=== PATIENT | female | born 1965 | race Caucasian/White ===

== ENCOUNTER 2019-04-22 19:41 | Emergency (ER) | payer OTHER ==
[2019-04-22 19:54] VITALS: BMI 32.3
--- NOTE | 2019-04-22 19:54 | PDOC ---
Rapid Medical Evaluation Time Seen by Provider: 04/22/19 19:50 Medical Evaluation: Allergies Allergy/AdvReac Type Severity Reaction Status Date / Time acetaminophen [From Tylenol] Allergy Severe Hives Verified 10/01/14 22:46 codeine [Codeine] Allergy Severe Rash Verified 10/01/14 22:46 morphine Allergy Intermediate Hives Verified 10/01/14 22:46 04/22/19 19:50 Presents to the ER for abdominal pain s/p talha hart on 03/26 in [place]. Had drains in place and they were removed by her PCP here. Still with lower abdominal pain and distension Exam: ambulatory, NAD, lower abdominal discomfort on exam. Mild distention Orders: Labs, urine, IV insert Pt to proceed to the ER for further evaluation Discharge Disposition - Diagnosis Post-op pain - Referrals - Patient Instructions - Post Discharge Activity
[2019-04-22 20:35] LABS: BASO % 0.7 % (0-2.0); HEMATOCRIT 36.6 % (32.4-45.2); HEMOGLOBIN 11.9 GM/dL (10.7-15.3); MCH 26.9 pg (25.7-33.7); MCHC 32.6 g/dl (32.0-36.0); MEAN CELL VOLUME 82.5 fl (80-96); MEAN PLT VOLUME 7.4 fl (7.5-11.1); MONO % 7.6 % (3.8-10.2); NEUT % 60.7 % (42.8-82.8); PLATELET COUNT 454 K/MM3 (134-434); RBC 4.44 M/mm3 (3.60-5.2); RDW 14.8 % (11.6-15.6)
--- NOTE | 2019-04-22 20:48 | PDOC ---
History of Present Illness - History of Present Illness Initial Comments: 54 year old female with PMH of HTN and cosmetic abdominal surgery with lap band removal s/p 27 days prior presenting with recent onset of abdominal firmness, chills, and clear drainage from her navel. She notes clear drainage out of her umbilicus as well without any yellow or white material. Denies fevers, nausea, vomiting, diarrhea, or other symptoms. 04/22/19 20:45 <Dread Ingram - Last Filed: 04/23/19 03:41> <Guillermo Denise - Last Filed: 04/23/19 06:15> - General Chief Complaint: Revisit,Wound Recheck Stated Complaint: SURGICAL PAIN Time Seen by Provider: 04/22/19 19:50 Past History - Past Medical History Anemia: No Asthma: No Cancer: No Cardiac Disorders: No CVA: No COPD: No CHF: No Dementia: No Diabetes: No GI Disorders: Yes (GERD COLONIC POLYPS) Disorders: No HTN: Yes Hypercholesterolemia: No Liver Disease: No Seizures: No Thyroid Disease: No - Surgical History Abdominal Surgery: Yes (LAPARASCOPIC BANDING COLON RESECTION FOR LARGE BENIGN POLYP) Appendectomy: Yes Cardiac Surgery: No Cholecystectomy: Yes Lung Surgery: No Neurologic Surgery: No Orthopedic Surgery: No - Immunization History Immunization Up to Date: Yes - Suicide/Smoking/Psychosocial Hx Smoking History: Former smoker Have you smoked in the past 12 months: No Number of Cigarettes Smoked Daily: 10 If you are a former smoker, when did you quit?: 45 days ago Information on smoking cessation initiated: No Hx Alcohol Use: No Drug/Substance Use Hx: No Substance Use Type: None Hx Substance Use Treatment: No <Dread Ingram - Last Filed: 04/23/19 03:41> <Guillermo Denise - Last Filed: 04/23/19 06:15> - Past Medical History Allergies/Adverse Reactions: Allergies Allergy/AdvReac Type Severity Reaction Status Date / Time acetaminophen [From Tylenol] Allergy Severe Hives Verified 04/22/19 19:51 codeine [Codeine] Allergy Severe Rash Verified 04/22/19 19:51 morphine Allergy Intermediate Hives Verified 04/22/19 19:51 Home Medications: Ambulatory Orders Hydrochlorothiazide 25 mg PO DAILY 04/22/19 Metoprolol Tartrate [Lopressor] 2.5 mg PO DAILY 04/22/19 Review of Systems - Review of Systems Constitutional: Yes: Chills. No: Diaphoresis, Fever, Loss of Appetite HEENTM: No: Eye Pain, Blurred Vision, Tearing Respiratory: No: Cough, Orthopnea, Shortness of Breath Cardiac (ROS): No: Chest Pain, Edema, Irregular Heart Rate ABD/GI: No: Diarrhea, Nausea, Vomiting : No: Dysuria, Discharge, Frequency Musculoskeletal: No: Back Pain, Joint Pain Integumentary: Yes: Erythema, Lesions Neurological: No: Headache, Numbness, Paresthesia Psychiatric: No: Anxiety, Depression Hematologic/Lymphatic: No: Anemia, Blood Clots, Easy Bleeding <Dread Ingram - Last Filed: 04/23/19 03:41> *Physical Exam - Vital Signs Last Vital Signs Temp Pulse Resp BP Pulse Ox 98.5 F 98 H 20 155/84 100 04/22/19 19:51 04/22/19 19:51 04/22/19 19:51 04/22/19 19:51 04/22/19 19:51 - Physical Exam General Appearance: Yes: Nourished, Appropriately Dressed. No: Apparent Distress HEENT: positive: EOMI, HENRIQUE, Normal ENT Inspection, Normal Voice Neck: positive: Trachea midline, Normal Thyroid, Supple. negative: Tender, Rigid Respiratory/Chest: positive: Lungs Clear, Normal Breath Sounds. negative: Chest Tender, Respiratory Distress Cardiovascular: positive: Regular Rhythm, Regular Rate Gastrointestinal/Abdominal: positive: Normal Bowel Sounds, Tender, Flat, Soft, Tenderness (central umbiliacal), Other (serous drianage from umbilicus) Musculoskeletal: positive: Normal Inspection. negative: Decreased Range of Motion Extremity: positive: Normal Capillary Refill, Normal Inspection, Normal Range of Motion. negative: Tender Integumentary: positive: Normal Color, Dry, Warm Neurologic: positive: Fully Oriented, Alert, Normal Mood/Affect, Normal Response , Motor Strength 5/5 <Dread Ingram - Last Filed: 04/23/19 03:41> - Vital Signs Last Vital Signs Temp Pulse Resp BP Pulse Ox 98.1 F 80 15 118/73 97 04/23/19 00:25 04/23/19 00:25 04/23/19 00:25 04/23/19 00:25 04/23/19 00:25 <HowieGuillermo - Last Filed: 04/23/19 06:15> ED Treatment Course - LABORATORY CBC & Chemistry Diagram: 04/22/19 20:12 04/22/19 20:12 - ADDITIONAL ORDERS Additional order review: 04/22/19 20:12 RBC 4.44 MCV 82.5 MCHC 32.6 RDW 14.8 MPV 7.4 L Neutrophils % 60.7 Lymphocytes % 29.0 Monocytes % 7.6 Eosinophils % 2.0 D Basophils % 0.7 <Dread Ingram - Last Filed: 04/23/19 03:41> - LABORATORY CBC & Chemistry Diagram: 04/22/19 20:12 04/22/19 20:12 - ADDITIONAL ORDERS Additional order review: Laboratory Results 04/22/19 04/22/19 04/22/19 20:20 20:12 20:12 PT with INR 13.50 H INR 1.14 H Sodium 139 Potassium 3.7 Chloride 104 Carbon Dioxide 29 Anion Gap 6 L BUN 9.5 Creatinine 0.7 Est GFR (CKD-EPI)AfAm 114.65 Est GFR (CKD-EPI)NonAf 98.92 Random Glucose 71 L Calcium 9.4 Total Bilirubin 0.3 AST 19 ALT 21 Alkaline Phosphatase 73 Total Protein 7.7 Albumin 3.6 Urine Color Yellow Urine Appearance Clear Urine pH 6.0 Ur Specific [place] 1.024 Urine Protein Negative Urine Glucose (UA) Negative Urine Ketones Negative Urine Blood Negative Urine Nitrite Negative Urine Bilirubin Negative Urine Urobilinogen 1.0 Ur Leukocyte Esterase Trace Urine WBC (Auto) 2 Urine RBC (Auto) 3 Urine Casts (Auto) 5 U Epithel Cells (Auto) 1.8 Urine Bacteria (Auto) 15.2 04/22/19 20:12 RBC 4.44 MCV 82.5 MCHC 32.6 RDW 14.8 MPV 7.4 L Neutrophils % 60.7 Lymphocytes % 29.0 Monocytes % 7.6 Eosinophils % 2.0 D Basophils % 0.7 - RADIOLOGY Radiology Studies Ordered: Category Date Time Status ABDOMEN & PELVIS CT WITH CONTR [CT] Stat CT Scan 04/22/19 20:47 Completed - Medications Given in the ED: ED Medications Discontinued Medications Generic Name Dose Route Start Last Admin Trade Name Freq PRN Reason Stop Dose Admin Diphenhydramine HCl 25 mg 04/22/19 22:04 04/22/19 22:19 Benadryl Injection - IVPUSH 04/22/19 22:05 25 mg ONCE ONE Administration Vancomycin HCl 1,500 mg/ 500 mls @ 250 mls/hr 04/22/19 23:20 04/23/19 00:54 Dextrose IVPB 04/23/19 01:19 250 mls/hr ONCE ONE Administration Piperacillin Sod/Tazobactam 100 mls @ 200 mls/hr 04/22/19 23:20 04/22/19 23: 51 Sod 4.5 gm/ Dextrose IVPB 04/22/19 23:49 200 mls/hr ONCE ONE Administration Protocol Morphine Sulfate 4 mg 04/22/19 22:04 04/22/19 22:19 Morphine Injection - IVPUSH 04/22/19 22:05 4 mg ONCE ONE Administration Sodium Chloride 1,000 ml 04/23/19 00:21 04/23/19 00:26 Normal Saline - IV 04/23/19 00:22 1,000 ml ONCE ONE Administration <Guillermo Denise - Last Filed: 04/23/19 06:15> Medical Decision Making - Medical Decision Making 54 year old female 4 weeks s/p cosmetic abdominal surgery and lap band adjustment/ port removal presenting with abdominal pain, chills, and serous drainage from umbilicus. Denies fevers. PE demonstrating abdominal tenderness, and serous drainage from umbilicus. VSS and labs WNL. CT abdomen/ pelvis with IV and PO contrast demonstrating fluid collection concerning for abscess in the abdomen. Discussed patient with Dr. Pearl who feels uncomfortable managing this patient as she believes that he needs a bariatric surgeon. We discussed the case with [facility] bariatric surgeon Dr. Vicente who accepted the patient. Patient transferred to [facility] in stable condition after receiving Vancomycin and Zosyn. 04/23/19 00:57 <Dread Ingram - Last Filed: 04/23/19 03:41> *DC/Admit/Observation/Transfer - Discharge Dispostion Decision to Admit order: No <Dread Ingram - Last Filed: 04/23/19 03:41> - Attestations Physician Attestion: 04/23/19 06:15 I have reviewed the plan as documented and agree with current plan as documented. Electronically co-signed by Guillermo Denise MD <Guillermo Denise - Last Filed: 04/23/19 06:15> Diagnosis at time of Disposition: Post-op pain - Discharge Dispostion Disposition: TRANSFER ACUTE CARE/OTHER HOSP Condition at time of disposition: Stable
[2019-04-22 20:49] LABS: INR 1.14 (0.83-1.09); PROTHROMBIN TIME (PATIENT) 13.5 SEC (9.7-13.0)
[2019-04-22 20:56] LABS: ALBUMIN 3.6 g/dl (3.4-5.0); BILIRUBIN,TOTAL 0.3 mg/dL (0.2-1); BLOOD UREA NITROGEN 9.5 mg/dL (7-18); CALCIUM 9.4 mg/dL (8.5-10.1); CREATININE 0.7 mg/dL (0.55-1.3); POTASSIUM 3.7 mmol/L (3.5-5.1); TOT PROT 7.7 g/dl (6.4-8.2)
[2019-04-22 21:03] LABS: EPI CELLS 1.8 /HPF (0-5/HPF); HYALINE CASTS 5 /lpf (0-8); URINE APPEARANCE CLEAR; URINE BACTERIA 15.2 /hpf (NEGATIVE); URINE BILIRUBIN NEGATIVE (NEGATIVE); URINE COLOR YELLOW; URINE GLUCOSE (UA) NEGATIVE (NEGATIVE); URINE KETONE NEGATIVE (NEGATIVE); URINE LEUK ESTERASE TRACE (NEGATIVE); URINE NITRITE NEGATIVE (NEGATIVE); URINE PROTEIN NEGATIVE (NEGATIVE); URINE RBC 3 /hpf (0-4); URINE WBC 2 /hpf (0-5)
--- NOTE | 2019-04-22 21:53 | PDOC ---
Documentation entered by Ryan Camilo SCRIBE, acting as scribe for Guillermo Denise MD. Guillermo Denise MD: This documentation has been prepared by the Ton kowalski Daniel, SCRIBE, under my direction and personally reviewed by me in its entirety. I confirm that the documentation accurately reflects all work, treatment, procedures, and medical decision making performed by me. Attending Attestation - Resident Resident Name: Juan JoseCesarioshelley - ED Attending Attestation I have performed the following: I have examined & evaluated the patient, The case was reviewed & discussed with the resident, I agree w/resident's findings & plan, Exceptions are as noted - HPI HPI: 04/22/19 21:16 The patient is a 54 year old female with a past medical history of HTN and pre diabetes here today for evaluation of abdominal distention and discharge from from her surgical site. The patient reports that she had an abdominoplasty and lap band removal on 03/26 down in [place]. She reports that about 3 weeks after the procedure she noted a feeling in her abdomen that something hard was there which turned to a feeling of water moving back and forth in her abdomen and pressure and discomfort behind her umbilicus. She also notes clear blood tinged discharge from her surgical site, some vomiting, and chills. Patient reports having normal bowel movements. Patient denies headache, lightheadedness. Denies fever. Denies chest pain, shortness of breath. Denies nausea, diarrhea. Allergies: acetaminophen, codeine, morphine 04/22/19 21:46 - Physicial Exam PE: 04/22/19 21:42 04/22/19 21:47 Surgical scar visible ~15cm below umbulicus extending across entire anterior aspect of abdomen, appears well healed A lap scar visible around the umbilicus with expressible clear serous discharge , surrounding erythema. Abdomen is diffusely tender, non distended. No appreciable masses or collections , no fluctuance appreciable. - Medical Decision Making 04/22/19 21:50 Post surgical complication afeb, stable vitals Will obtain CTAP w/ oral and IV contrast to r/o intra-abdominal pathology vs abscess / surgical site infection Will consider abx after CTAP
[2019-04-22] MEDS ORDERED: morphine CARPU-JECT 4 MG/1 ML DISP.SYRIN IVPUSH ONE (22:04)
[2019-04-22] MEDS ORDERED: morphine SULFATE 4 MG/ML VIAL ONE (22:13)
[2019-04-22] MEDS ORDERED: VANCOMYCIN HCL 1,500 MG in DEXTROSE 5%-WATER - 500 ML IVPB ONE (23:20)
[2019-04-22] MEDS ORDERED: PIPERACILLIN/TAZOB 4.5 GM 4.5 GM in DEXTROSE 5%-WATER 100 ML IVPB ONE (23:20)
[2019-04-22] MEDS ORDERED: PIPERACILLIN/TAZOB 4.5 GM 4.5 GM/100 ML BAG IVPB ONE (23:46)
[2019-04-23] MEDS ORDERED: SODIUM CHLORIDE 0.9% 500 ML INFUS.BAG IV ONE (00:21)
[2019-04-23 00:27] VITALS: BP 118/73; PULSE 80; TEMP 98.1
== END 2019-04-23 01:15 | disposition short-term general hospital (02) ==
LOC: JER 19:41
PROC: 3E03329 Introduction of Other Anti-infective into Peripheral Vein, Percutaneous Approach (ICD-10-PCS; principal; 2019-04-22)
PROC: 3E03329 Introduction of Other Anti-infective into Peripheral Vein, Percutaneous Approach (ICD-10-PCS; 2019-04-22)
PROC: 3E033GC Introduction of Other Therapeutic Substance into Peripheral Vein, Percutaneous Approach (ICD-10-PCS; 2019-04-22)
PROC: 3E033NZ Introduction of Analgesics, Hypnotics, Sedatives into Peripheral Vein, Percutaneous Approach (ICD-10-PCS; 2019-04-22)
DX: G89.18 Other acute postprocedural pain (principal); Z98.84 Bariatric surgery status; Z48.817 Encounter for surgical aftercare following surgery on the skin and subcutaneous tissue
CPT/HCPCS: 36415; 74177-TC; 80053; 81003; 85025; 85610; 87086; 96365; 96367; 96375; 99282-25

== ENCOUNTER 2024-02-24 01:26 | Emergency (ER) | payer OTHER ==
[2024-02-24 01:37] VITALS: BP 152/83; PULSE 86; RESP 20; TEMP 98.7; BMI 32.3
[2024-02-24] MEDS ORDERED: IBUPROFEN 400 MG TABLET (FP) PO ONE (01:45)
[2024-02-24] MEDS ORDERED: KETOROLAC TROMETHAMINE 30 MG/1 ML VIAL ONE (01:51)
[2024-02-24] MEDS: KETOROLAC TROMETHAMINE 30 MG/1 ML VIAL IM ONE (02:02)
[2024-02-24] MEDS ORDERED: LIDOCAINE 4% PATCH TP ONE (03:31)
[2024-02-24] MEDS: LIDOCAINE 4% PATCH TP ONE (03:35)
[2024-02-24] MEDS ORDERED: LIDOCAINE PATCH REMOVAL MC ONE (16:00)
== END 2024-02-24 04:13 | disposition home or self-care (01) ==
LOC: JER 01:26
PROC: 3E0133Z Introduction of Anti-inflammatory into Subcutaneous Tissue, Percutaneous Approach (ICD-10-PCS; principal; 2024-02-24)
DX: S22.32XA Fracture of one rib, left side, initial encounter for closed fracture (principal); W10.8XXA Fall (on) (from) other stairs and steps, initial encounter
CPT/HCPCS: 71046-TC-FY; 71101-TC-LT-FY; 99284-25

== ENCOUNTER 2024-05-05 14:06 | Emergency (ER) | payer OTHER ==
[2024-05-05 14:27] VITALS: BP 166/79; PULSE 76; RESP 17; TEMP 97.9; BMI 32.3
[2024-05-05] MEDS ORDERED: KETOROLAC TROMETHAMINE 30 MG/1 ML VIAL ONE (16:21)
[2024-05-05] MEDS ORDERED: LIDOCAINE 5% TOPICAL PATCH TP ONE (16:23)
[2024-05-05] MEDS: KETOROLAC TROMETHAMINE 30 MG/1 ML VIAL IM ONE (16:41)
[2024-05-05] MEDS: LIDOCAINE 4% PATCH TP ONE (18:42)
[2024-05-05] MEDS ORDERED: LIDOCAINE PATCH REMOVAL MC SCH ×2 (22:00)
== END 2024-05-05 18:42 | disposition home or self-care (01) ==
LOC: JER 14:06
PROC: 3E0233Z Introduction of Anti-inflammatory into Muscle, Percutaneous Approach (ICD-10-PCS; principal; 2024-05-05)
DX: M79.604 Pain in right leg (principal)
CPT/HCPCS: 93971-TC; 99284-25